=== PATIENT | male | born 1950 | race Caucasian/White ===

== ENCOUNTER → 2016-11-24 | Outpatient (CLI) | payer MEDICARE, BC ==
--- NOTE | 2016-11-24 17:42 | RADRPT ---
PROCEDURE: Left knee radiographs. CLINICAL INDICATION: Left knee pain. TECHNIQUE: Three views. Weight bearing. Frontal, lateral, and patellar view. COMPARISON: Bilateral knee radiographs dated 08/20/2015. FINDINGS: There is no fracture or dislocation. The soft tissues are normal. The articular surfaces are intact. There is mild narrowing of the medial joint compartment, unchang ed. There is no lytic or blastic lesion. There is no radiopaque foreign body. IMPRESSION: 1. Mild narrowing of the medial joint compartment, unchanged from 08/20/2015. 2. Otherwise unremarkable images of the left knee. RPTAT: QQ .Yakov Sears MD, MD Date Time Electronically viewed and signed by .Yakov Sears MD, on 11/24/2016 17:42 .R/
--- NOTE | 2016-11-24 23:41 | HKNOTE ---
DATE OF SERVICE: 11/24/2016 MAIN COMPLAINT: Pain in the left knee. HISTORY OF MAIN COMPLAINT: Patient is a 66-year-old male complaining of pain in his left knee. The pain has been present for about 3 months. There has been no history of injury to the knee. Patient has previously had a right hip replacement performed by me in 2004. He is a very active person. He skis on a regular basis. In fact, he is leaving for a trip tomorrow and he is worried about his painful knee. PRESENT COMPLAINTS: The knee does not swell, lock or give way. He does not take any medications fo r the knee. He can walk as far as he likes. He does not use a walking aid. He never limps. PHYSICAL EXAMINATION: LEFT KNEE EXAMINATION: 2+ crepitus in the knee, none in the patella. VITAL SIGNS: Height 6 feet 2 inches, weight 267 pounds. Blood pressure 105/70, temperature 97.7. IMAGING: Plain x-rays of the left knee obtained today show the most minimal narrowing of the medial joint space. Otherwise, entirely normal. DISCUSSION: The patient does not have any of the classic symptoms of an internal derangement of the knee. No MRI is required. DIAGNOSIS: Mild degenerative osteoarthritis, left knee. MANAGEMENT: Under sterile conditions, he was given an injection of 40 mg of Kenalog and 3 mL of 2% lidocaine into the knee and he will be seen again as necessary for further evaluation and treatment. Dictated By: SCAR LEON/VENTURA Conf#: [id number] DID#: [id number]
== END | disposition home or self-care (01) ==
LOC: HKI 14:09
DX: M17.12 Unilateral primary osteoarthritis, left knee (principal); M25.562 Pain in left knee
CPT/HCPCS: 20610; 73562; G0463; J3301

== ENCOUNTER → 2017-05-06 | Outpatient (CLI) | END | disposition home or self-care (01) | DX: M25.562 Pain in left knee (principal) | CPT/HCPCS: 20610; G0463 ==

== ENCOUNTER → 2017-11-30 | Outpatient (CLI) | END | disposition home or self-care (01) ==

== ENCOUNTER → 2017-12-09 | Outpatient (CLI) | END | disposition home or self-care (01) ==

== ENCOUNTER → 2018-01-06 | Outpatient (CLI) | END | disposition home or self-care (01) ==

== ENCOUNTER → 2018-03-02 | Outpatient (CLI) | END | disposition home or self-care (01) ==

== ENCOUNTER → 2018-09-21 | Outpatient (CLI) | END | disposition home or self-care (01) ==

== ENCOUNTER → 2018-11-11 | Outpatient (CLI) | payer MEDICARE, BC ==
--- NOTE | 2018-11-11 14:41 | CONS ---
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 He is treated nonoperatively with a hinged knee brace. He currently completed all of his physical therapy and during physical activity does wear an ACL and MCL brace. States he has no symptoms of instability. And on a regular basis has minimal to no pain. Still complaint is some crepitance w ith mild pain under his patella. He is coming in today specifically to talk about skiing which is 1 of his main hobbies along with fishing. He is going on a ski trip next week. Per our previous discussions I told him that if his knee was stable on examination and he was asymptomatic he could go skiing as long as he is able to wear the brace and does easy runs. Objective Exam General: Awake, alert, in no acute distress, pleasant and cooperative Heart: regular rhythm Lungs: breathing comfortably, no tachypnea or dyspnea Musculoskeletal: Left knee Full range of passive and active motion of the left knee without pain. Non tender to palpation over the MCL and medial joint line. The medial aspect of the knee is stable when compared to the contralateral knee with a valgus stress at 0 and 30. Equivocal anterior drawer and Giles's. Neurovascular intact distally. Assessment/Plan Chief Complaint/Hosp Course 68-year-old male with history of left chronic ACL tear and previous MCL injury. He is doing very well today. On examination he is very stable. He does not friend ve any symptoms of instability and his only complaint is patellar crepitance. Resuming activities such as skiing and fishing are okay as long as he is wearing the brace and is using common sense in terms of the intensity of the physical activity. Follow-up RADHA RIZO MD Nov 11, 2018 14:41
== END | disposition home or self-care (01) ==
LOC: HKI 14:05
PROVIDERS: ATTEND Orthopaedic Surgery Adult Reconstructive Orthopaedic Surgery
DX: S83.512D Sprain of anterior cruciate ligament of left knee, subsequent encounter (principal); X58.XXXD Exposure to other specified factors, subsequent encounter
CPT/HCPCS: G0463